=== PATIENT | female | born 1930 | race Caucasian/White ===

== ENCOUNTER 2016-10-24 08:02 | Emergency (ER) | payer OTHER ==
[2016-10-24 08:08] VITALS: TEMP 97.8; BMI 42.0
--- NOTE | 2016-10-24 08:11 | PDOC ---
History of Present Illness - General Chief Complaint: Pain, Acute Stated Complaint: ABD PAIN, CHEST TIGHTNESS Time Seen by Provider: 10/24/16 08:10 History Source: Patient, Old Records Exam Limitations: No Limitations - History of Present Illness Initial Comments: 10/24/16 08:11 CHIEF COMPLAINT: Chest and abdominal pain HISTORY OF PRESENT ILLNESS: This is an 85 year old female with a history of HTN , Afib (on Pradaxa), IDDM, dyslipidemia, GERD, and pancreatitis brought in by her daughter ambulatory to the ED complaining of burning upper abdominal pain, belching, and chest "tightness" since last night. The pain is unrelieved by omeprazole, Mylanta, and tea. She had a normal bowel movement yesterday and denies hematochezia. She has not had nausea/vomiting, shortness of breath, diaphoresis, or lower extremity edema above baseline. She frequently suffers from acid reflux, but states that the chest pain that she has today is different from prior episodes. Primary language is Khmer. PCP is Dr. Conrad Supervisor Type Photography is Dr. Maxwell REVIEW OF SYSTEMS: GENERAL/CONSTITUTIONAL: No fever or chills. No weakness. No weight change. HEAD, EYES, EARS, NOSE AND THROAT: No change in vision. No ear pain or discharge. No sore throat. CARDIOVASCULAR: Chest tightness. No palpitations. RESPIRATORY: No cough, wheezing, or shortness of breath. GASTROINTESTINAL: Burning upper abdominal pain. No nausea, vomiting, diarrhea or constipation. GENITOURINARY: No dysuria, frequency, or change in urination. MUSCULOSKELETAL: No joint or muscle swelling or pain. No neck or back pain. SKIN: No rash or easy bruising. NEUROLOGIC: No headache, vertigo, loss of consciousness, or loss of sensation. PSYCHIATRIC: No depression or anxiety. ENDOCRINE: No increased thirst. No abnormal weight change. HEMATOLOGIC/LYMPHATIC: No anemia, easy bleeding, or history of blood clots. ALLERGIC/IMMUNOLOGIC: History of PCN allergy. PHYSICAL EXAM: GENERAL: The patient is awake, alert, and fully oriented, in some secondary to pain. HEAD: Normal with no signs of trauma. ENT: Pupils equal, round and reactive to light, extraocular movements intact, sclera anicteric, conjunctiva clear. Neck supple. LUNGS: Clear to auscultation bilaterally. Normal excursion. No respiratory distress or use of accessory muscles. CV: RRR, S1/S2, no MRG. Cap refill < 2 sec. ABDOMEN: Soft, obese, tender to gentle palpation in epigastrium, no other focal tenderness. EXTREMITIES: 1+ pitting LE edema bilaterally. NEUROLOGICAL: Normal speech, normal gait. CN II-XII grossly intact. PSYCH: Normal mood, normal affect. SKIN: Warm, dry, normal turgor, no rashes or lesions noted. Past History - Past Medical History Allergies/Adverse Reactions: Allergies Allergy/AdvReac Type Severity Reaction Status Date / Time Penicillins Allergy Mild Rash Verified 10/24/16 08:04 Home Medications: Ambulatory Orders Acetaminophen [Tylenol] 500 mg PO PRN PRN 10/30/14 Aspirin [ASA -] 81 mg PO ASDIR 10/30/14 Atorvastatin Ca [Lipitor] 20 mg PO ASDIR 10/30/14 Dabigatran Etexilate Mesylate [Pradaxa -] 75 mg PO ONCE 10/30/14 Folic Acid - 1 mg PO DAILY 10/30/14 Furosemide [Lasix -] 20 mg PO DAILY 10/30/14 Lisinopril [Prinivil -] 0.5 tab PO DAILY 10/30/14 Metoprolol Succinate [Toprol XL -] 12.5 mg PO HS 10/30/14 Multivitamins [Multivit ([facility] Formulary)] 1 tab PO DAILY 10/30/14 Pioglitazone HCl/Metformin HCl [Actoplus Met 15 mg-850 mg Tab] 1 each PO BID Sennosides [Senna -] 1 tab PO DAILY PRN 10/30/14 Acetaminophen W/ Codeine #3 [Tylenol # 3 -] 1 tab PO Q6H PRN #15 tablet Alprazolam [Xanax] 0.25 mg PO BID PRN 01/26/16 Docusate Sodium [Colace -] 100 mg PO BID 01/26/16 Insulin Glargine,Hum.rec.anlog [Lantus (10mL VIAL) -] 2 units SQ HS 01/26/16 Omeprazole [Prilosec] 40 mg PO ASDIR PRN 01/26/16 Cardiac Disorders: Yes (afib) Diabetes: Yes (WITH NEUROPATHY) HTN: Yes Hypercholesterolemia: Yes - Surgical History Cardiac Surgery: Yes (CARDIAC STENTS) Orthopedic Surgery: Yes (LT LEG) - Psycho/Social/Smoking Cessation Hx Anxiety: Yes Suicidal Ideation: No Smoking History: Never smoked Have you smoked in the past 12 months: No Hx Alcohol Use: No Drug/Substance Use Hx: No Substance Use Type: None Hx Substance Use Treatment: No *Physical Exam - Vital Signs Last Vital Signs Temp Pulse Resp BP Pulse Ox 97.8 F 89 18 134/56 99 10/24/16 08:05 10/24/16 08:05 10/24/16 08:05 10/24/16 08:05 10/24/16 08:05 Heart Score/ECG Review - ECG Intrepretation Comment:: 10/24/16 08:20 Atrial fibrillation with ventricular rate of 83 bpm, PVCs, RBBB previously noted on prior EKG of 01/2016 ED Treatment Course - LABORATORY CBC & Chemistry Diagram: 10/24/16 08:40 10/24/16 08:40 - RADIOLOGY Radiology Studies Ordered: Category Date Time Status CHEST X-RAY PORTABLE* [RAD] Stat Radiology 10/24/16 08:10 Ordered Medical Decision Making - Medical Decision Making 10/24/16 08:39 A/P: 85 year old female with epigastric pain radiating to the chest. Differential includes but is not limited to: GERD, pancreatitis, ACS. 1. EKG 2. Fingerstick blood glucose 3. ASA 162mg 4. Cardiac labs and lipase 5. CXR 6. Pepcid and Maalox for symptomatic relief 7. Re-evaluate 10/24/16 09:54 Troponin <0.02. CXR: Prominent mediastinum with mild congestion. FRANCES granuloma which appears slightly larger than on previous exam (may be projectional). Patient re-evaluated and is still belching and complaining of upper abdominal pain- states "I feel like something is wrong." Will obtain CTAP- patient refuses PO contrast and BUN/Cr are 32/1.1 so will not administer IV contrast. Patient and daughter agree to stay in ED for second cardiac enzyme (offered observation/admission but they decline). Patient is asking for her home dose of Xanax. 10/24/16 11:44 CT reviewed: stranding of the subcutaneous fat is noted in the RLQ (patient has no symptoms or tenderness there). There are small gallstones and possible chronic cholecystitis. Observation recommended, but patient and daughter decline. Will keep for second troponin. Discussed with PCP who also talked with patient's daughter via phone. 10/24/16 14:15 Second troponin <0.02. *DC/Admit/Observation/Transfer Diagnosis at time of Disposition: Atypical chest pain - Discharge Dispostion Disposition: HOME Condition at time of disposition: Stable Admit: No - Referrals Referrals: Phan Conrad MD [Primary Care Provider] - - Patient Instructions Printed Discharge Instructions: GERD Diet, DI for Atypical Chest Pain Additional Instructions: You were seen today for chest pain/abdominal pain. Your blood work and CT scan did not reveal any specific cause of your pain. Please follow up with Dr. Conrad tomorrow as discussed. Copies of your tests are enclosed. Please return here for worsening pain, inability to keep down fluids, or any other concerning symptoms.
[2016-10-24] MEDS ORDERED: MAG HYDROX/AL HYDROX/SIMETH 30 ML UNIT-DOSE CUP PO ONE (08:25)
[2016-10-24] MEDS ORDERED: FAMOTIDINE 20 MG/50 ML IVPB 20 MG in PREMIX 50 IVPB ONE (08:25)
[2016-10-24] MEDS ORDERED: ASPIRIN 81 MG CHEWABLE TABLETS PO ONE (08:26)
[2016-10-24] MEDS ORDERED: ASPIRIN 81 MG CHEWABLE TABLETS ONE (08:38)
[2016-10-24] MEDS ORDERED: MAG HYDROX/AL HYDROX/SIMETH 30 ML UNIT-DOSE CUP ONE (08:38)
[2016-10-24] MEDS ORDERED: FAMOTIDINE 20 MG/50 ML IVPB 50 ML IVPB ONE (08:40)
[2016-10-24 09:05] LABS: BASOPHIL 0.2 % (0-2.0); EOSINOPHIL 0.5 % (0-4.5); MCH 27.8 pg (25.7-33.7); MCHC 32.6 g/dl (32.0-36.0); MEAN CELL VOLUME 85.2 fl (80-96); MEAN PLT VOLUME 8.1 fl (7.5-11.1); PLATELET COUNT 173 K/MM3 (134-434); WHITE BLOOD COUNT 4.6 K/mm3 (4.0-10.0)
[2016-10-24 09:19] LABS: ALBUMIN 3.8 g/dl (3.4-5.0); ANION GAP 10 (8-16); BILIRUBIN,TOTAL 0.6 mg/dL (0.2-1.0); CALCIUM 9.1 mg/dL (8.5-10.1); CO2 29 mmol/L (21-32); CREATININE 1.1 mg/dL (0.55-1.02); GLUCOSE,RANDOM 148 mg/dL (74-106); SGOT/AST 23 U/L (15-37); SGPT/ALT 16 U/L (12-78)
[2016-10-24 09:20] LABS: INR 1.08 (0.82-1.09); PROTHROMBIN TIME (PATIENT) 11.9 SEC (9.98-11.88)
[2016-10-24 09:21] LABS: ALK PHOS 87 U/L (45-117); TROPONIN I < 0.02 ng/ml (0.00-0.05)
[2016-10-24] MEDS ORDERED: ONDANSETRON 4 MG/2 ML VIAL IVPB ONE (10:11)
[2016-10-24] MEDS ORDERED: ONDANSETRON 4 MG/2 ML VIAL ONE (10:22)
[2016-10-24] MEDS ORDERED: ALPRAZolam 0.25 MG TABLET PO ONE (10:27)
[2016-10-24] MEDS ORDERED: ALPRAZolam 0.25 MG TABLET ONE (10:44)
[2016-10-24] MEDS: morphine CARPU-JECT 4 MG/1 ML DISP.SYRIN IVPUSH ONE ×2 (12:41→13:05)
[2016-10-24] MEDS ORDERED: morphine CARPU-JECT 4 MG/1 ML DISP.SYRIN ONE (12:41)
[2016-10-24 14:12] LABS: TROPONIN I < 0.02 ng/ml (0.00-0.05)
[2016-10-24 14:34] VITALS: BP 122/56; PULSE 85
--- NOTE | 2016-10-25 10:50 | EKG ---
Test Reason : Blood Pressure : / mmHG Vent. Rate : 083 BPM Atrial Rate : 080 BPM P-R Int : 000 ms QRS Dur : 132 ms QT Int : 414 ms P-R-T Axes : 000 091 023 degrees QTc Int : 486 ms ATRIAL FIBRILLATION WITH PREMATURE VENTRICULAR OR ABERRANTLY CONDUCTED COMPLEXES RIGHT BUNDLE BRANCH BLOCK ABNORMAL ECG WHEN COMPARED WITH ECG OF 26-JAN-2016 07:29, QUESTIONABLE CHANGE IN QRS AXIS Confirmed by MATA WATSON MD ([id number]) on 10/25/2016 10:50:31 AM Referred By: Confirmed By:MATA WATSON MD
== END 2016-10-24 14:34 | disposition home or self-care (01) ==
LOC: JER 08:02
PROC: 3E033NZ Introduction of Analgesics, Hypnotics, Sedatives into Peripheral Vein, Percutaneous Approach (ICD-10-PCS; principal; 2016-10-24)
PROC: 3E033GC Introduction of Other Therapeutic Substance into Peripheral Vein, Percutaneous Approach (ICD-10-PCS; 2016-10-24)
DX: R07.89 Other chest pain (principal); I10 Essential (primary) hypertension; I48.91 Unspecified atrial fibrillation; E11.9 Type 2 diabetes mellitus without complications; E78.5 Hyperlipidemia, unspecified; K21.9 Gastro-esophageal reflux disease without esophagitis; Z79.4 Long term (current) use of insulin; Z79.82 Long term (current) use of aspirin; Z95.5 Presence of coronary angioplasty implant and graft
CPT/HCPCS: 36415; 71010-TC; 74176-TC; 80053; 82550; 83690; 84484; 85025; 85610; 93005; 93010; 96365; 96375; 99282-25

== ENCOUNTER 2018-11-22 06:31 | Emergency (ER) | payer OTHER ==
[2018-11-22 06:55] VITALS: BP 114/76; PULSE 88; TEMP 98.5; BMI 38.6
[2018-11-22] MEDS ORDERED: ACETAMINOPHEN 325 MG TABLET (FP) PO ONE (07:32)
[2018-11-22] MEDS ORDERED: LIDOCAINE 5% TOPICAL PATCH TP ONE (07:32)
[2018-11-22] MEDS ORDERED: CYCLOBENZAPRINE HCL 5 MG TABLET PO ONE (07:33)
[2018-11-22] MEDS ORDERED: ACETAMINOPHEN 325 MG TABLET (FP) ONE (07:36)
[2018-11-22] MEDS ORDERED: LIDOCAINE 5% TOPICAL PATCH ONE (07:36)
[2018-11-22] MEDS ORDERED: CYCLOBENZAPRINE HCL 10 MG TABLET (FP) ONE (07:36)
[2018-11-22] MEDS ORDERED: PANTOPRAZOLE 40 MG TABLET (FP) PO ONE (07:52)
--- NOTE | 2018-11-22 07:59 | PDOC ---
History of Present Illness - General Chief Complaint: Injury Stated Complaint: FALL Time Seen by Provider: 11/22/18 07:06 History Source: Patient, Family - History of Present Illness Initial Comments: 11/22/18 07:54 HPI 88 year old female with a history of HTN, Afib (on Pradaxa), IDDM, dyslipidemia , arthritis, cataracts, GERD, and pancreatitis brought in by EMs presenting with right buttock and hip pain s/p mechanical fall last night at 10pm. At that time she was bending down to wipe when she lost her balance and fell from the toilet. +head struck the door, but no LOC or head bleeding/swelling. No headache or dizziness. Has been ambulatory since incident last night, uses cane for ambulation without difficulty. This morning at 5am, she woke up with stiffness and increased right groin/buttock pain, worse with movement and walking. Denies fever, chills, chest pain, SOB, palpitation, dizziness, focal weakness or paresthesias, N, V, D, abdominal pain, bladder and bowel problems, leg swelling, No new changes in medications. No suspicious food intake Allergies: pcn Past Medical History: HTN, Afib (on Pradaxa), IDDM, dyslipidemia, GERD, and pancreatitis Social history: Lives with family. No smoking. No alcohol. No illicit drugs. Surgical history: cataracts. Left hip prosthesis PMD: Dr Conrad Past History - Past Medical History Allergies/Adverse Reactions: Allergies Allergy/AdvReac Type Severity Reaction Status Date / Time Penicillins Allergy Mild Rash Verified 11/22/18 06:45 Home Medications: Ambulatory Orders Aspirin [ASA -] 81 mg PO DAILY 10/30/14 Atorvastatin Ca [Lipitor] 20 mg PO ASDIR 10/30/14 Dabigatran Etexilate Mesylate [Pradaxa -] 75 mg PO BID 10/30/14 Folic Acid - 1 mg PO DAILY 10/30/14 Furosemide [Lasix -] 20 mg PO DAILY 10/30/14 Lisinopril [Prinivil -] 2.5 mg PO DAILY 10/30/14 Metoprolol Succinate [Toprol XL -] 12.5 mg PO DAILY 10/30/14 Multivitamins [Multivit ([facility] Formulary)] 1 tab PO DAILY 10/30/14 Pioglitazone HCl/Metformin HCl [Actoplus Met 15 mg-850 mg Tab] 1 each PO BID Sennosides [Senna -] 1 tab PO BID 10/30/14 Acetaminophen W/ Codeine #3 [Tylenol # 3 -] 1 tab PO Q6H PRN #15 tablet Alprazolam [Xanax] 0.25 mg PO BID PRN 01/26/16 Insulin Glargine,Hum.rec.anlog [Lantus (10mL VIAL) -] 2 units SQ HS 01/26/16 Famotidine [Pepcid -] 10 mg PO DAILY 02/27/18 Pantoprazole Sodium [Protonix] 40 mg PO BID #14 tablet. 02/27/18 Lidocaine 5% Patch [Lidoderm Patch -] 1 patch TP DAILY PRN #7 patch 11/22/18 Cardiac Disorders: Yes (afib) COPD: No Diabetes: Yes (WITH NEUROPATHY) HTN: Yes Hypercholesterolemia: Yes Psychiatric Problems: Yes (anxiety and depression) - Surgical History Cardiac Surgery: Yes (CARDIAC STENTS) Orthopedic Surgery: Yes (LT LEG) - Immunization History Immunization Up to Date: Yes - Suicide/Smoking/Psychosocial Hx Smoking History: Never smoked Have you smoked in the past 12 months: No Information on smoking cessation initiated: No Hx Alcohol Use: No Drug/Substance Use Hx: No Substance Use Type: None Hx Substance Use Treatment: No Review of Systems - Review of Systems Able to Perform ROS?: Yes Comments:: 11/22/18 07:54 Review of systems Constitutional: no fevers or chills. HEENT: no headache or dizziness. No visual/hearing disturbances. CVS: no cp or syncope. no palpitations. Resp: no sob. No cough. Gastrointestinal: no abdominal pain, nausea or vomiting. Genitourinary: no urinary sx, hematuria. no urgency or frequency. MUSCULOSKELETAL: No joint pain and swelling. No neck. +hip, buttock and lower back pain. SKIN: no redness or skin changes, no discharge, no rash. No wounds. Hematologic: no easy bruising/bleeding. NEUROLOGIC: No headache, dizziness, LOC or altered mental status. No weakness, numbness or tingling. Allergic/Immunologic: pcn allergy All other systems reviewed and negative, or as documented in HPI. *Physical Exam - Vital Signs Last Vital Signs Temp Pulse Resp BP Pulse Ox 98.5 F 88 20 114/76 100 11/22/18 06:46 11/22/18 06:46 11/22/18 06:46 11/22/18 06:46 11/22/18 06:46 - Physical Exam Comments: 11/22/18 07:55 General: GCS 15 NAD, mildly anxious. HEENT: NCAT, PERRL, EOMI. Airway intact. No battles sign or raccoon eyes. dentures intact. Dentition intact. No e/o septal hematoma, nasal bridge stable. Neck: neck supple, no midline C spine tenderness or deformity, ROM intact. No anterior mass or crepitus, trachea midline. Resp: Lungs clear bilaterally Chest: no clavicle or chest wall tenderness or crepitus CVS: irregularly irregular, 2+ pulses throughout. Abdomen: Abdomen soft, nontender, obese. Back: Back nontender, no midline spinal tenderness along cervical/thoracic/ lumbar spine, FROM, no stepoffs. +right lower buttock TTP, no overlying ecchymosis or hematoma or swelling. MSK: Pelvis stable, Extremities symmetric, no focal areas of tenderness or deformities, proximal and distally; no pain on axial loading. FROM in all extrem. Neuro: Alert, oriented appropriately. CN II-XII grossly symmetric and intact. no focal neuro deficits. Sensation and strength intact throughout. speech clear. Skin: intact, normal color and well perfused. no wounds, ecchymosis or hematoma. ED Treatment Course - RADIOLOGY Radiology Studies Ordered: Category Date Time Status CERVICAL SPINE CT W/O CONTR [CT] Stat CT Scan 11/22/18 07:[address] WITHOUT CONTRAST [CT] Stat CT Scan 11/22/18 07:33 Ordered HIP & PELVIS-RIGHT [RAD] Stat Radiology 11/22/18 07:34 Ordered PELVIS [RAD] Stat Radiology 11/22/18 07:33 Ordered - Medications Given in the ED: ED Medications Discontinued Medications Generic Name Dose Route Start Last Admin Trade Name Freq PRN Reason Stop Dose Admin Acetaminophen 975 mg 11/22/18 07:32 11/22/18 07:48 Tylenol - PO 11/22/18 07:33 975 mg ONCE ONE Administration Cyclobenzaprine HCl 10 mg 11/22/18 07:33 11/22/18 07:48 Cyclobenzaprine Hcl PO 11/22/18 07:34 10 mg ONCE ONE Administration Lidocaine 1 patch 11/22/18 07:32 11/22/18 07:48 Lidoderm Patch - TP 11/22/18 07:33 1 patch ONCE ONE Administration Medical Decision Making - Medical Decision Making 11/22/18 07:56 hpi as documented VS reviewed, wnl. mildly anxious ABCs intact. 2ndary trauma eval unremarkable. Trauma ddx: ICH, SDH/ EDH, C spine injury/strain, extremity sprain/fracture, pelvis fracture. MSK contusion, msk spasms. Rib fractures. Clinically doubt Intra abdominal and thoracic injuries/bleed, no midline impact/back tenderness to suggest compression fx or spinal cord pathology. given analgesia, topical lidoderm patch - much improved. 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 arthritic changes noted Xray pelvis/right hip no acute fx, +arthritic and degenerative changes noted. normal alignment, slightly rotated. no pelvic fx. left femur prosthesis noted. no systemic sx, no complaints apart from msk pain, so no labs indicated. no cp or respiratory sx, no infectious sx. at baseline, safe at home with walker device, no recent falls except from today.\ no narcotics or sedating agents to be given due to fall risk, no anticholinergic agents. tylenol only prn for pain control if needed Pt to be discharged in stable condition. Patient and family made aware of impression and plan, return precautions discussed (including but not limited to worsening pain or symptoms), fevers, or signs of infection, chest pain, respiratory distress, inability to tolerate oral intake, dehydration, syncope, or neurologic changes). Follow up with PMD and/or specialist as recommended, follow up information provided, take medications as instructed for duration of time. continue with supportive care, avoid triggers and precipitants. All questions answered to patient's satisfaction and expressed understanding and comfort with this. Patient does not suffer from an acute life-threatening medical condition at this time she is safe for outpatient follow-up. 11/22/18 10:27 11/22/18 10:29 *DC/Admit/Observation/Transfer Diagnosis at time of Disposition: Buttock sprain - Discharge Dispostion Disposition: HOME Condition at time of disposition: Improved Decision to Admit order: No - Prescriptions Prescriptions: Lidocaine 5% Patch [Lidoderm Patch -] 1 patch TP DAILY PRN #7 patch PRN Reason: Pain - Referrals Referrals: Phan Conrad MD [Primary Care Provider] - - Patient Instructions Printed Discharge Instructions: How to Prevent Falls Additional Instructions: FALL PREVENTION AT HOME WHAT YOU NEED TO KNOW There are many different factors that can increase your risk of falls. Falls can happen any time, but the majority of them occur in the home. Fall prevention includes ways to make your home and other areas safer. It also includes ways you can move more carefully to prevent a fall. Health conditions that cause changes in your blood pressure, vision, or muscle strength and coordination may increase your risk for falls. Medicines, including anesthesia, may increase your risk for falls if they make you dizzy, weak, or sleepy. May take tylenol as needed for pain. topical lidoderm patches available over the counter, use as needed for myofascial pain. other medications may cause drowsiness, increase falls and injuries and to be avoided. FALL PREVENTION TIPS Stand or sit up slowly. This may help you keep your balance and prevent falls. Do not walk and talk at the same time. Concentrate on the task of walking and continue the conversation after you've reached a safe place. Wear shoes that fit well and have soles that paper cutter operator. Wear shoes both inside and outside. Use slippers with good paper cutter operator. Avoid shoes with high heels. Use assistive devices as directed. Your healthcare provider may suggest that you use a cane or walker to help you keep you balance. Be sure you have adequate lighting throughout your house. Keep paths clear. Remove books, shoes and other objects from walkways and stairs. Keep cords for telephones and lamps out of the way so you dont need to walk over them. Remove small rugs or secure them with double-sided tape. This will prevent you from tripping. Use a nightlight when getting out of bed at night. Stay active to maintain overall strength and endurance. Know your limitations. If there is a task you can not complete with ease, do not risk a fall by trying to complete it. Call 911 or have someone else call if: You have fallen and are unconscious You have fallen and cannot move part of your body Contact your healthcare provider if: You have fallen and have pain or a headache You have questions or concerns about your condition or care. - Post Discharge Activity
[2018-11-22] MEDS ORDERED: PANTOPRAZOLE 40 MG TABLET (FP) ONE (09:41)
== END 2018-11-22 11:00 | disposition home or self-care (01) ==
LOC: JER 06:31
DX: S09.8XXA Other specified injuries of head, initial encounter (principal); S39.012A Strain of muscle, fascia and tendon of lower back, initial encounter; W18.12XA Fall from or off toilet with subsequent striking against object, initial encounter; Y93.89 Activity, other specified; Y92.012 Bathroom of single-family (private) house as the place of occurrence of the external cause; Y99.8 Other external cause status; I48.91 Unspecified atrial fibrillation; Z79.01 Long term (current) use of anticoagulants; E11.42 Type 2 diabetes mellitus with diabetic polyneuropathy; Z79.4 Long term (current) use of insulin; I25.10 Atherosclerotic heart disease of native coronary artery without angina pectoris; I10 Essential (primary) hypertension; E78.00 Pure hypercholesterolemia, unspecified; F41.9 Anxiety disorder, unspecified; F32.9 Major depressive disorder, single episode, unspecified; K21.9 Gastro-esophageal reflux disease without esophagitis; Z95.5 Presence of coronary angioplasty implant and graft
CPT/HCPCS: 70450-TC; 72125-TC; 73523-TC-FY; 99283-25

== ENCOUNTER 2019-05-18 13:32 | Emergency (ER) | payer OTHER ==
[2019-05-18 13:48] VITALS: TEMP 98.5; BMI 37.8
[2019-05-18] MEDS ORDERED: ACETAMINOPHEN 1000 MG/100 ML VIAL (NON FORMULARY) IVPB ONE (14:08)
[2019-05-18] MEDS ORDERED: SODIUM CHLORIDE 500 ML IV STA (14:09)
--- NOTE | 2019-05-18 14:19 | PDOC ---
History of Present Illness - General Chief Complaint: Pain Stated Complaint: Pain Time Seen by Provider: 05/18/19 13:48 - History of Present Illness Initial Comments: 05/18/19 14:21 88 y/o F hx of Afib on pradaxa, HTN, GERD, IDDM, HLD, arthritis, pancreatitis presenting with 4 days of abdominal pain and constipation. She has been complaining of RLQ pain 8/10 in severity. She takes tylenol with codeine and tramadol for arthritic pain control. Pain is non-radiating.she was at her PCP's office today where she was given a stool softener and suppository. She was able to pass a small amount of stool after suppository administration. Stool was non- bloody. She denies fevers, chills, nausea, vomiting, diarrhea, dysuria, hematuria, hx of abdominal surgeries. Past History - Past Medical History Allergies/Adverse Reactions: Allergies Allergy/AdvReac Type Severity Reaction Status Date / Time Penicillins Allergy Mild Rash Verified 11/22/18 06:45 Home Medications: Ambulatory Orders Aspirin [ASA -] 81 mg PO Q2D 10/30/14 Atorvastatin Ca [Lipitor] 20 mg PO ASDIR 10/30/14 Dabigatran Etexilate Mesylate [Pradaxa -] 150 mg PO BID 10/30/14 Folic Acid - 1 mg PO DAILY 10/30/14 Furosemide [Lasix -] 20 mg PO DAILY 10/30/14 Lisinopril [Prinivil -] 2.5 mg PO DAILY 10/30/14 Metoprolol Succinate [Toprol XL -] 12.5 mg PO DAILY 10/30/14 Multivitamins [Multivit ([facility] Formulary)] 1 tab PO DAILY 10/30/14 Pioglitazone HCl/Metformin HCl [Actoplus Met 15 mg-850 mg Tab] 1 each PO BID Sennosides [Senna -] 1 tab PO BID 10/30/14 Alprazolam [Xanax] 0.25 mg PO HS 01/26/16 Insulin Glargine,Hum.rec.anlog [Lantus (10mL VIAL) -] 2 units SQ HS 01/26/16 Acetaminophen W/ Codeine #3 [Tylenol # 3 -] 1 tab PO HS 05/18/19 Tramadol HCl 50 mg PO DAILY PRN 05/18/19 Cardiac Disorders: Yes (afib) COPD: No Diabetes: Yes (WITH NEUROPATHY) HTN: Yes Hypercholesterolemia: Yes Psychiatric Problems: Yes (anxiety and depression) - Surgical History Cardiac Surgery: Yes (CARDIAC STENTS) Orthopedic Surgery: Yes (LT LEG) - Immunization History Immunization Up to Date: Yes - Psycho Social/Smoking Cessation Hx Smoking History: Never smoked Have you smoked in the past 12 months: No Hx Alcohol Use: No Drug/Substance Use Hx: No Substance Use Type: None Hx Substance Use Treatment: No Review of Systems - Review of Systems Constitutional: No: Chills, Fever HEENTM: No: Eye Pain, Blurred Vision Respiratory: No: Cough, Shortness of Breath Cardiac (ROS): No: Chest Pain ABD/GI: Yes: Symptoms Reported : No: Dysuria, Hematuria Musculoskeletal: Yes: Back Pain, Joint Pain Neurological: No: Headache Psychiatric: Yes: Anxiety *Physical Exam - Vital Signs Last Vital Signs Temp Pulse Resp BP Pulse Ox 98.5 F 84 19 117/57 L 99 05/18/19 13:34 05/18/19 13:34 05/18/19 13:34 05/18/19 13:34 05/18/19 13:34 - Physical Exam Comments: 05/18/19 14:19 PE: GENERAL: Awake, alert, and fully oriented, anxious. HEAD: No signs of trauma, normocephalic, atraumatic EYES: PERRLA, EOMI, sclera anicteric, conjunctiva clear ENT: Auricles normal inspection, hearing grossly normal, nares patent, oropharynx clear without exudates. Moist mucosa NECK: Normal ROM, supple, no lymphadenopathy, JVD, or masses LUNGS: No distress, speaks full sentences, clear to auscultation bilaterally HEART: Regular rate and rhythm, normal S1 and S2, systolic murmur peripheral pulses normal and equal bilaterally. ABDOMEN: Soft, tender to palpation right lower quadrant, normoactive bowel sounds. No masses EXTREMITIES : Normal inspection, Normal range of motion, trace edema bilateral lower extremities. No cyanosis NEUROLOGICAL: Cranial nerves II through XII grossly intact. Normal speech, no focal sensorimotor deficits SKIN: Warm, Dry, normal turgor, no rashes or lesions noted ED Treatment Course - LABORATORY CBC & Chemistry Diagram: 05/18/19 14:38 05/18/19 15:55 Medical Decision Making - Medical Decision Making 05/18/19 14:26 88 y/o F hx of Afib on pradaxa, HTN, GERD, IDDM, HLD, arthritis, pancreatitis presenting with 4 days of abdominal pain and constipation ekg,cbc,cmp, ua, urine culture, ct abdomen and pelvis with IV contrast, Meds: tylenol IV, 1L normal saline, 05/18/19 14:56 EKG:atrial fibrillation, RBBB Lactic acid 1.2 Lipase 74 UA negative for leukocyte esterase, nitrites and blood 05/18/19 16:25 05/18/19 16:25 05/18/19 19:49 Pt willing to follow up with PCP to optimize regimen as opposed to getting Relistor from us at this time. Due to complicated nature of monitoring and pt would have to discontinue meds from PCP. Discharge - Discharge Information Problems reviewed: Yes Clinical Impression/Diagnosis: Abdominal pain Qualifiers: Abdominal location: right lower quadrant Qualified Code(s): R10.31 - Right lower quadrant pain Condition: Stable Disposition: HOME - Admission No - Follow up/Referral Referrals: Phan Conrad MD [Primary Care Provider] - - Patient Discharge Instructions Patient Printed Discharge Instructions: DI for Abdominal Pain-Adult, DI for Prescription Opioid Use Additional Instructions: you were seen in the ED for abdominal pain Follow up with your primary care provider to optimize your bowel regimen for your constipation in the next 3 days. Return to the ER if you have worsening abdominal pain, fevers, blood in your stool or any other worsening symptoms. - Post Discharge Activity
[2019-05-18] MEDS ORDERED: ACETAMINOPHEN INJECTION 100 ML IVPB ONE (14:32)
[2019-05-18] MEDS ORDERED: morphine CARPU-JECT 2 MG/1 ML DISP.SYRIN IVPUSH ONE (14:37)
[2019-05-18 15:14] LABS: BASO % 0.3 % (0-2.0); EOS % 0.2 % (0-4.5); HEMATOCRIT 30.4 % (32.4-45.2); HEMOGLOBIN 9.7 GM/dL (10.7-15.3); LYMPH % 10.8 % (8-40); MCH 26.2 pg (25.7-33.7); MCHC 31.9 g/dl (32.0-36.0); MEAN CELL VOLUME 82.1 fl (80-96); MONO % 5.5 % (3.8-10.2); NEUT % 83.2 % (42.8-82.8); PLATELET COUNT 212 K/MM3 (134-434); WHITE BLOOD COUNT 5.3 K/mm3 (4.0-10.0)
[2019-05-18 15:38] LABS: INR 1.22 (0.83-1.09); PROTHROMBIN TIME (PATIENT) 14.4 SEC (9.7-13.0)
[2019-05-18 15:41] LABS: ACTIVATED PTT 64.8 SECONDS (25.2-36.5)
[2019-05-18 16:19] LABS: PH,URINE 6.5 (5.0-8.0); URINE APPEARANCE CLEAR; URINE BILIRUBIN NEGATIVE (NEGATIVE); URINE COLOR YELLOW; URINE GLUCOSE (UA) NEGATIVE (NEGATIVE); URINE KETONE NEGATIVE (NEGATIVE); URINE LEUK ESTERASE NEGATIVE (NEGATIVE); URINE NITRITE NEGATIVE (NEGATIVE); URINE PROTEIN NEGATIVE (NEGATIVE); URINE UROBILINOGEN 0.2 mg/dL (0.2-1.0)
[2019-05-18 16:37] LABS: ALBUMIN 3.8 g/dl (3.4-5.0); BILIRUBIN,TOTAL 0.4 mg/dL (0.2-1); BLOOD UREA NITROGEN 34.3 mg/dL (7-18); CALCIUM 8.9 mg/dL (8.5-10.1); POTASSIUM 4.4 mmol/L (3.5-5.1); TOT PROT 6.9 g/dl (6.4-8.2)
[2019-05-18 16:47] LABS: INR 1.28 (0.83-1.09); PROTHROMBIN TIME (PATIENT) 15.1 SEC (9.7-13.0)
[2019-05-18] MEDS ORDERED: LORazepam 2 MG/ML SDV VIAL ONE (16:49)
[2019-05-18 16:50] LABS: ACTIVATED PTT 50.3 SECONDS (25.2-36.5)
--- NOTE | 2019-05-18 16:57 | PDOC ---
Attending Attestation - Resident Resident Name: Jen Villatoro - ED Attending Attestation I have performed the following: I have examined & evaluated the patient, The case was reviewed & discussed with the resident, I agree w/resident's findings & plan, Exceptions are as noted - HPI HPI: 05/18/19 16:51 88 y/o F hx of Afib on pradaxa, HTN, GERD, IDDM, HLD, arthritis, pancreatitis, presents to the emergency department four-day history of abdominal pain and discomfort. - Physicial Exam PE: 05/18/19 16:51 Vitals: Triage Vital signs reviewed General Appearance: no acute distress, well nourished well developed, Head: Atraumatic, Cardiac: Regular rate and rhythym, no murmurs, no rubs, no gallops, Lungs: Clear to auscultation bilateral, good air movement bilaterally, Abdomen: Soft, non distended, normal bowel sounds, non tender to palpation Extremities: Full range of motion to all extremities, no cyanosis, clubbing, or edema Skin: Warm and dry, no rashes or lesions, no rash, no petechiae Psych: normal mood, normal affect - Medical Decision Making 05/18/19 18:59 Well-appearing with right-sided abdominal discomfort CAT scan pending Dr. Doss to follow-up CAT scan and dispo
[2019-05-18 19:41] VITALS: BP 120/60; PULSE 76
--- NOTE | 2019-05-19 10:06 | EKG ---
Test Reason : Blood Pressure : / mmHG Vent. Rate : 079 BPM Atrial Rate : 144 BPM P-R Int : 000 ms QRS Dur : 136 ms QT Int : 436 ms P-R-T Axes : 000 059 026 degrees QTc Int : 499 ms ATRIAL FIBRILLATION RIGHT BUNDLE BRANCH BLOCK ABNORMAL ECG WHEN COMPARED WITH ECG OF 24-OCT-2016 08:08, NONSPECIFIC T WAVE ABNORMALITY NO LONGER EVIDENT IN ANTERIOR LEADS Confirmed by Benji Canseco MD ([id number]) on 05/19/2019 10:06:03 AM Referred By: Confirmed By:Benji Canseco MD
== END 2019-05-18 20:01 | disposition home or self-care (01) ==
LOC: JER 13:32
PROC: 3E033NZ Introduction of Analgesics, Hypnotics, Sedatives into Peripheral Vein, Percutaneous Approach (ICD-10-PCS; principal; 2019-05-18)
PROC: 3E033NZ Introduction of Analgesics, Hypnotics, Sedatives into Peripheral Vein, Percutaneous Approach (ICD-10-PCS; 2019-05-18)
DX: R10.31 Right lower quadrant pain (principal); K59.00 Constipation, unspecified; I25.10 Atherosclerotic heart disease of native coronary artery without angina pectoris; I10 Essential (primary) hypertension; Z95.5 Presence of coronary angioplasty implant and graft; I48.91 Unspecified atrial fibrillation; Z79.01 Long term (current) use of anticoagulants; E11.40 Type 2 diabetes mellitus with diabetic neuropathy, unspecified; Z79.4 Long term (current) use of insulin; E78.00 Pure hypercholesterolemia, unspecified; F41.8 Other specified anxiety disorders; F32.9 Major depressive disorder, single episode, unspecified; K21.9 Gastro-esophageal reflux disease without esophagitis; M12.9 Arthropathy, unspecified; K86.9 Disease of pancreas, unspecified; Z88.0 Allergy status to penicillin
CPT/HCPCS: 36415; 71045-TC-FY; 74177-TC; 80053; 81003; 83605; 83690; 85025; 85610; 85730; 87086; 93005; 93010; 96374; 96375; 99284-25; J0131; J7030

== ENCOUNTER 2019-09-11 09:53 | Inpatient (IN) | payer OTHER ==
[2019-09-11 10:06] VITALS: BMI 37.8
--- NOTE | 2019-09-11 10:39 | PDOC ---
History of Present Illness - General Chief Complaint: Chest Pain Stated Complaint: CHEST PAIN/ABD. PAIN Time Seen by Provider: 09/11/19 10:22 - History of Present Illness Initial Comments: The pt is an 88F w/ a history of Afib (pradaxa), Alzheimer's dementia, HTN, GERD , NIDDM, HLD, arthritis, pancreatitis who presents for evaluation of chest pain that started this morning. The history is per the daughter as the pt is unable to give a history. The daughter states that this morning the pt appeared frantic complaining of chest pain and was initially inconsolable. She then would not take her morning medications. The daughter attributes this latter part to the patients dementia. Upon arrival to the ED, the pt consented to take her morning medications. At this time the pt reports mild chest discomfort to yes/no questioning but is unable to further qualify it. Per the daughter, the pt has not had any fevers or coughing at home. Daughter also reports improved leg swelling s/p increase in Lasix dosage. PMD: Dr. Roberts Cards: Dr. Cunningham ([facility]) Neuro: Dr. Agustin 09/11/19 10:39 Past History - Past Medical History Allergies/Adverse Reactions: Allergies Allergy/AdvReac Type Severity Reaction Status Date / Time Penicillins Allergy Mild Rash Verified 11/22/18 06:45 Home Medications: Ambulatory Orders Aspirin [Aspirin EC] 81 mg PO DAILY 09/11/19 Atorvastatin Ca [Lipitor] 20 mg PO HS 09/11/19 Dabigatran Etexilate Mesylate [Pradaxa -] 75 mg PO BID 09/11/19 Donepezil HCl 5 mg PO DAILY 09/11/19 Furosemide [Lasix -] 40 mg PO DAILY 09/11/19 Insulin Glargine,Hum.rec.anlog [Lantus] 20 unit SQ DAILY 09/11/19 Lisinopril [Zestril] 2.5 mg PO DAILY 09/11/19 Mag Hydrox/Al Hydrox/Simeth [Mylanta Oral Suspension -] 30 ml PO DAILY 09/11/19 Metoprolol Tartrate [Lopressor -] 12.5 mg PO DAILY 09/11/19 Multivitamin [Multiple Vitamins] 1 each PO DAILY 09/11/19 Omeprazole 20 mg PO DAILY 01/24/20 Pioglitazone HCl/Metformin HCl [Actoplus Met 15 mg-850 mg Tab] 1 each PO BID Potassium Chloride 20 meq PO DAILY 09/11/19 Quetiapine Fumarate [Seroquel -] 12.5 mg PO BID 09/11/19 Sennosides [Senna] 8.6 mg PO BID 09/11/19 Anemia: Yes Cardiac Disorders: Yes (afib) COPD: No Diabetes: Yes (WITH NEUROPATHY) HTN: Yes Hypercholesterolemia: Yes Psychiatric Problems: Yes (anxiety and depression) - Surgical History Cardiac Surgery: Yes (CARDIAC STENTS) Orthopedic Surgery: Yes (LT LEG) - Immunization History Immunization Up to Date: Yes - Psycho Social/Smoking Cessation Hx Smoking History: Never smoked Have you smoked in the past 12 months: No Hx Alcohol Use: No Drug/Substance Use Hx: No Substance Use Type: None Hx Substance Use Treatment: No Review of Systems - Review of Systems Able to Perform ROS?: No (2/2 medical condition) *Physical Exam - Vital Signs Last Vital Signs Temp Pulse Resp BP Pulse Ox 98.3 F 88 18 145/57 L 100 09/11/19 10:04 09/11/19 10:04 09/11/19 10:04 09/11/19 10:04 09/11/19 10:04 - Physical Exam GENERAL: Awake, in no acute distress HEAD: No signs of trauma, normoc ephalic, atraumatic EYES: PERRLA, EOMI, sclera anicteric, conjunctiva clear ENT: Hearing grossly normal, nares patent, oropharynx clear without exudates. Moist mucosa LUNGS: No distress, poor inspiratory effort, clear to auscultation bilaterally HEART: Regular rate and irregularly irregular rhythm, normal S1 and S2, no murmurs appreciated, peripheral pulses normal and equal bilaterally ABDOMEN: Soft, protuberant, no grimace to palpation, normoactive bowel sounds. No guarding, no rebound EXTREMITIES: BLE 4+ edema to mid thigh w/o cellulitic changes NEUROLOGICAL: Cranial nerves II through XII grossly intact. Normal speech, no focal sensorimotor deficits SKIN: Warm, Dry 09/11/19 10:38 ED Treatment Course - LABORATORY CBC & Chemistry Diagram: 09/11/19 10:28 09/11/19 10:28 - RADIOLOGY Radiology Studies Ordered: Category Date Time Status CHEST X-RAY PORTABLE* [RAD] Stat Radiology 09/11/19 10:31 Ordered Medical Decision Making - Medical Decision Making The pt is an 88F w/ a history of Afib (pradaxa), Alzheimer's dementia, HTN, GERD , NIDDM, HLD, arthritis, pancreatitis who presents for evaluation of chest pain that started this morning. ED Course CMP, CBC, Coags CXR ECG w/ a-fib; HR 90; RBBB; QTc 513; no axis deviation; no JESUS MANUEL 09/11/19 10:45 No leukocytosis Anemia noted Elevated BUN noted -neg stool occult blood -No indication to transfuse at this time Lytes unremarkable Cr near baseline LFTs wnl Trop I neg BNP elevated, no history to compare Plan for Tele obs Microblog sent, awaiting return call 09/11/19 13:35 Pt signed out to admitting service Discharge - Discharge Information Problems reviewed: Yes Clinical Impression/Diagnosis: ACS (acute coronary syndrome) Chest pain Qualifiers: Chest pain type: unspecified Qualified Code(s): R07.9 - Chest pain, unspecified Condition: Good - Admission Yes - Follow up/Referral - Patient Discharge Instructions - Post Discharge Activity
[2019-09-11 10:51] LABS: BASO % 0.6 % (0-2.0); EOS % 0.6 % (0-4.5); HEMATOCRIT 26.7 % (32.4-45.2); HEMOGLOBIN 8.4 GM/dL (10.7-15.3); LYMPH % 10.4 % (8-40); MCH 24.8 pg (25.7-33.7); MCHC 31.3 g/dl (32.0-36.0); MEAN CELL VOLUME 79.1 fl (80-96); MEAN PLT VOLUME 8.2 fl (7.5-11.1); MONO % 6.1 % (3.8-10.2); NEUT % 82.3 % (42.8-82.8); PLATELET COUNT 227 K/MM3 (134-434); RBC 3.37 M/mm3 (3.60-5.2); RDW 17.3 % (11.6-15.6); WHITE BLOOD COUNT 4.6 K/mm3 (4.0-10.0)
--- NOTE | 2019-09-11 11:04 | PDOC ---
Documentation entered by Waleska Guerra SCRIBE, acting as scribe for Brenden Mandel MD. Brenden Mandel MD: This documentation has been prepared by the Charile aguilera Adrianna, SCRIBE, under my direction and personally reviewed by me in its entirety. I confirm that the documentation accurately reflects all work, treatment, procedures, and medical decision making performed by me. Attending Attestation - Resident Resident Name: Wilton Wiseman - ED Attending Attestation I have performed the following: I have examined & evaluated the patient, The case was reviewed & discussed with the resident, I agree w/resident's findings & plan, Exceptions are as noted - HPI HPI: The patient is an 88 year old female, with a significant PMH of Afib (on pradaxa ), HTN, GERD, NIDDM, HLD, arthritis, Alzheimers dementia, anxiety, depression, anemia, and pancreatitis, who presents to the ED for evaluation of chest pain that began this morning. Daughter at bedside provides history. She notes that the patient was distraught this morning, complaining of chest pain, and could not be calmed. She refused to take her daily morning medications, but agreed to do so while in the ED. Patient endorses chest discomfort while in the ED, but will not further describe it. Patients Lasix dosage was increased recently, and the daughter notes the patients LE edema has been improving. Allergies: Penicillins Surgical History: Cardiac stents, left leg orthopedic surgery Social History: PCP: Armando Sevilla Underwriting Sales Representative: Dr. Gil Neurologist: Dr. Agustin - Physicial Exam PE: See resident exam - Medical Decision Making 09/11/19 11:06 88 F with h/o CAD/stents, presenting to ED with chest pain. Will r/o ACS. EKG without new ischemic changes. - Labs, trop - CXR
[2019-09-11 11:24] LABS: ALBUMIN 3.5 g/dl (3.4-5.0); ALK PHOS 89 U/L (45-117); ANION GAP 8 MMOL/L (8-16); BILIRUBIN,TOTAL 0.5 mg/dL (0.2-1); BLOOD UREA NITROGEN 55.5 mg/dL (7-18); CALCIUM 8.8 mg/dL (8.5-10.1); CHLORIDE 104 mmol/L (98-107); CO2 26 mmol/L (21-32); CREATININE 1.2 mg/dL (0.55-1.3); GLUCOSE,RANDOM 243 mg/dL (74-106); N-TERMINAL BNP 2725.6 pg/ml (5-450); POTASSIUM 4.1 mmol/L (3.5-5.1); SGOT/AST 21 U/L (15-37); SGPT/ALT 20 U/L (13-61); SODIUM 137 mmol/L (136-145); TOT PROT 6.9 g/dl (6.4-8.2)
[2019-09-11 11:52] LABS: INR 1.13 (0.83-1.09); PROTHROMBIN TIME (PATIENT) 13.3 SEC (9.7-13.0)
[2019-09-11 11:55] LABS: ACTIVATED PTT 40.4 SECONDS (25.2-36.5)
[2019-09-11 13:05] LABS: PH,URINE 5.5 (5.0-8.0); URINE APPEARANCE CLEAR; URINE BILIRUBIN NEGATIVE (NEGATIVE); URINE COLOR YELLOW; URINE GLUCOSE (UA) NEGATIVE (NEGATIVE); URINE KETONE NEGATIVE (NEGATIVE); URINE LEUK ESTERASE NEGATIVE (NEGATIVE); URINE NITRITE NEGATIVE (NEGATIVE); URINE PROTEIN NEGATIVE (NEGATIVE); URINE UROBILINOGEN 0.2 mg/dL (0.2-1.0)
--- NOTE | 2019-09-11 13:47 | EKG ---
Test Reason : Blood Pressure : / mmHG Vent. Rate : 090 BPM Atrial Rate : 111 BPM P-R Int : 000 ms QRS Dur : 132 ms QT Int : 420 ms P-R-T Axes : 000 038 010 degrees QTc Int : 513 ms ATRIAL FIBRILLATION RIGHT BUNDLE BRANCH BLOCK ABNORMAL ECG WHEN COMPARED WITH ECG OF 18-MAY-2019 14:35, NONSPECIFIC T WAVE CHANGES ARE PRESENT Confirmed by BISHOP SHEARER MD ([id number]) on 09/11/2019 1:46:34 PM Referred By: Confirmed By:BISHOP SHEARER MD
[2019-09-11] MEDS ORDERED: ACETAMINOPHEN 325 MG TABLET (FP) PO ONE (14:52)
[2019-09-11] MEDS ORDERED: LIDOCAINE 5% TOPICAL PATCH TP ONE (14:53)
[2019-09-11] MEDS ORDERED: ACETAMINOPHEN 325 MG TABLET (FP) ONE (15:34)
[2019-09-11] MEDS ORDERED: LIDOCAINE 5% TOPICAL PATCH ONE (15:35)
--- NOTE | 2019-09-11 16:28 | HP ---
CHIEF COMPLAINT: Chest pain PCP: Dr. Rocha (supposed to be covered by Dr. Kerr) HISTORY OF PRESENT ILLNESS: Pt. is an 88 y.o. [place]-speaking F w/ PMHx. of Afib (on Pradaxa), Alzheimer's dementia, HTN, GERD, DM2, HLD, Arthritis, anxiety , depression, and CAD presents with the complaint of chest pain. Pt. severely hard of hearing. History provided by both daughter who doubles as her SHRIMP POND LABORER, and translators. Ana Paula Greene is Pt.s Power of deputy attorney general, no HCP has been designated. Per other daughter who is main SHRIMP POND LABORER, when she arrived at Pt.s house, Pt. was screaming anxiously that she was in pain and that she had generalized aches in her body, that her stomach was aching and that she was belching. Per daughter Pt. has been having worsening dementia and has been more frequently having outbursts. Pt. was scheduled to see her tank builder helper (Dr. Cunningham) today but Pt. was hysterical and refused to take her AM medications, daughters decided to bring her to the hospital. Pt. sees Dr. Agustin who manages her dementia and had her medications recently changed. Pt. denies taking Clonazepam recently because it makes the Pt. more delirious and hallucinate, instead Pt. was started on Seroquel and Donepezil. Pt. endorses having her Lasix dose increased to 40mg Daily last Saturday for worsening leg swelling. ER course was notable for: (1) UA/UCx, EKG, Trop (2) CXR, FOBT, BNP (3) Recent Travel: No PAST MEDICAL HISTORY: As above PAST SURGICAL HISTORY: Cardiac Stents Social History: Smoking: Denies Alcohol: Denies Drugs: Denies Allergies Penicillins Allergy (Mild, Verified 11/22/18 06:45) Rash HOME MEDICATIONS: Home Medications Medication Instructions Recorded Aspirin [Aspirin EC] 81 mg PO DAILY 09/11/19 Atorvastatin Ca [Lipitor] 20 mg PO HS 09/11/19 Dabigatran Etexilate Mesylate 75 mg PO BID 09/11/19 [Pradaxa -] Donepezil HCl 5 mg PO DAILY 09/11/19 Furosemide [Lasix -] 40 mg PO DAILY 09/11/19 Insulin Glargine,Hum.rec.anlog 20 unit SQ DAILY 09/11/19 [Lantus] Lisinopril [Zestril] 2.5 mg PO DAILY 09/11/19 Mag Hydrox/Al Hydrox/Simeth 30 ml PO DAILY 09/11/19 [Mylanta Oral Suspension -] Metoprolol Tartrate [Lopressor -] 12.5 mg PO DAILY 09/11/19 Multivitamin [Multiple Vitamins] 1 each PO DAILY 09/11/19 Omeprazole 20 mg PO DAILY 09/11/19 Pioglitazone HCl/Metformin HCl 1 each PO BID 09/11/19 [Actoplus Met 15 mg-850 mg Tab] Potassium Chloride 20 meq PO DAILY 09/11/19 Quetiapine Fumarate [Seroquel -] 12.5 mg PO BID 09/11/19 Sennosides [Senna] 8.6 mg PO BID 09/11/19 REVIEW OF SYSTEMS As above PHYSICAL EXAMINATION Vital Signs - 24 hr 09/11/19 09/11/19 10:04 14:39 Temperature 98.3 F 98.1 F Pulse Rate 88 Pulse Rate [ 94 H Apical] Respiratory 18 16 Rate Blood Pressure 145/57 L Blood Pressure 91/51 L [Right Arm] O2 Sat by Pulse 100 98 Oximetry (%) GENERAL: Awake, alert, and oriented x 2, in mod. psychiatric distress. HEAD: Normal with no signs of trauma. EYES: Pupils equal, round and reactive to light, extraocular movements intact, sclera anicteric, conjunctiva clear. EARS, NOSE, THROAT: Ears normal, nares patent, oropharynx clear without exudates. Moist mucous membranes. NECK: Normal range of motion, obese LUNGS: Breath sounds equal, clear to auscultation bilaterally. No wheezes, and no crackles. No accessory muscle use. HEART: Regular rate and rhythm, normal S1 and S2 without murmur ABDOMEN: Soft, obese, nontender, not distended, normoactive bowel sounds, no guarding MUSCULOSKELETAL: No CVA tenderness. UPPER EXTREMITIES: warm, well-perfused. No cyanosis. LOWER EXTREMITIES: 2+ dorsal pedal pulses, warm, well-perfused. Calf tenderness. 3+ edema. NEUROLOGICAL: Confused. Hearing loss, Normal speech. Slow Gait, uses walker PSYCHIATRIC: Cooperative. Good eye contact. Appropriate mood and affect. SKIN: Warm, dry, chronic skin changes in lower extremities Laboratory Results - last 24 hr 09/11/19 09/11/19 09/11/19 10:28 10:28 10:28 WBC 4.6 RBC 3.37 L Hgb 8.4 L Hct 26.7 L MCV 79.1 L MCH 24.8 L MCHC 31.3 L RDW 17.3 H Plt Count 227 MPV 8.2 Absolute Neuts (auto) 3.8 Neutrophils % 82.3 Lymphocytes % 10.4 Monocytes % 6.1 Eosinophils % 0.6 D Basophils % 0.6 Nucleated RBC % 0 PT with INR 13.30 H INR 1.13 H PTT (Actin FS) 40.4 H Sodium 137 Potassium 4.1 Chloride 104 Carbon Dioxide 26 Anion Gap 8 BUN 55.5 H Creatinine 1.2 Est GFR (CKD-EPI)AfAm 47.06 Est GFR (CKD-EPI)NonAf 40.60 Random Glucose 243 H Calcium 8.8 Total Bilirubin 0.5 AST 21 ALT 20 Alkaline Phosphatase 89 Troponin I < 0.02 B-Natriuretic Peptide 2725.6 H Total Protein 6.9 Albumin 3.5 Urine Color Urine Appearance Urine pH Ur Specific [place] Urine Protein Urine Glucose (UA) Urine Ketones Urine Blood Urine Nitrite Urine Bilirubin Urine Urobilinogen Ur Leukocyte Esterase Stool Occult Blood 09/11/19 09/11/19 11:00 12:15 WBC RBC Hgb Hct MCV MCH MCHC RDW Plt Count MPV Absolute Neuts (auto) Neutrophils % Lymphocytes % Monocytes % Eosinophils % Basophils % Nucleated RBC % PT with INR INR PTT (Actin FS) Sodium Potassium Chloride Carbon Dioxide Anion Gap BUN Creatinine Est GFR (CKD-EPI)AfAm Est GFR (CKD-EPI)NonAf Random Glucose Calcium Total Bilirubin AST ALT Alkaline Phosphatase Troponin I B-Natriuretic Peptide Total Protein Albumin Urine Color Yellow Urine Appearance Clear Urine pH 5.5 Ur Specific [place] 1.011 Urine Protein Negative Urine Glucose (UA) Negative Urine Ketones Negative Urine Blood Negative Urine Nitrite Negative Urine Bilirubin Negative Urine Urobilinogen 0.2 Ur Leukocyte Esterase Negative Stool Occult Blood Negative ASSESSMENT/PLAN: Pt. is an 88 y.o. [place]-speaking F w/ PMHx. of Afib (on Pradaxa), Alzheimer's dementia, HTN, GERD, DM2, HLD, Arthritis, anxiety, depression, and CAD presents with the complaint of chest pain. #R/o ACS Initial trop negative, f/u Rpt. EKG: HR 90, RBBB, QTc: 513, no ST segment changes, TWI in lead III (New compared to April 2019) Pt. denies any current Chest pain Hold all QTc prolonging drugs f/u Echo, as Pt. does not have one documented now I suspect that this is not a true ACS picture and that Pt. had anxiety attack exacerbated by not taking Klonopin and from underlying baseline worsening dementia. #Alzheimers #HTN #GERD #DM2 #HLD #Arthritis #Afib c/w Home medications, except oral hypoglycemics and Seroquel (prolonged QTc). Please assess Pt. if she becomes agitated overnight, and avoid using Ativan or Benadryl. will provide PRN Haldol for agitation, as Pt. gets more confused when daughters are not present Consult to Dr. Cox appreciated, as Dr. Agustin is currently away Daughter states that she is willing to discuss options of placement into a SNF, and that she needs further time to decide with her family about her code status. Pt. is Full Code. #FEN no IVF, encourage PO intake monitor electrolytes and replete as needed Sodium controlled diet #DVT Ppx. c/w Pradaxa Visit type - Emergency Visit Emergency Visit: Yes ED Registration Date: 09/11/19 Care time: The patient presented to the Emergency Department on the above date and was hospitalized for further evaluation of their emergent condition. - New Patient This patient is new to me today: Yes Date on this admission: 09/11/19 - Critical Care Critical Care patient: No ATTENDING PHYSICIAN STATEMENT I saw and evaluated the patient. I reviewed the resident's note and discussed the case with the resident. I agree with the resident's findings and plan as documented. SUBJECTIVE: OBJECTIVE: ASSESSMENT AND PLAN:
--- NOTE | 2019-09-11 17:58 | PN ---
Teaching Attending Note ATTENDING PHYSICIAN STATEMENT I saw and evaluated the patient. I reviewed the resident's note and discussed the case with the resident. I agree with the resident's findings and plan as documented. SUBJECTIVE: OBJECTIVE: ASSESSMENT AND PLAN:
--- NOTE | 2019-09-11 18:52 | DS ---
Physical Exam: SUBJECTIVE: Patient seen and examined OBJECTIVE: Vital Signs Period Temp Pulse Resp BP Sys/Gilbert Pulse Ox Last 24 Hr 98.1 F-98.4 F 88-95 16-18 91-145/51-69 98-100 PHYSICAL EXAM GENERAL: The patient is awake, alert, and fully oriented, in no acute distress. HEAD: Normal with no signs of trauma. EYES: PERRL, extraocular movements intact, sclera anicteric, conjunctiva clear. ENT: Ears normal, nares patent, oropharynx clear without exudates, moist mucous membranes. NECK: Trachea midline, full range of motion, supple. LUNGS: Breath sounds equal, clear to auscultation bilaterally, no wheezes, no crackles, no accessory muscle use. HEART: Regular rate and rhythm, S1, S2 without murmur, rub or gallop. ABDOMEN: Soft, nontender, nondistended, normoactive bowel sounds, no guarding, no rebound, no hepatosplenomegaly, no masses. EXTREMITIES: 2+ pulses, warm, well-perfused, no edema. NEUROLOGICAL: Cranial nerves II through XII grossly intact. Normal speech, gait not observed. PSYCH: Normal mood, normal affect. SKIN: Warm, dry, normal turgor, no rashes or lesions noted. LABS Laboratory Results - last 24 hr 09/11/19 09/11/19 09/11/19 10:28 10:28 10:28 WBC 4.6 RBC 3.37 L Hgb 8.4 L Hct 26.7 L MCV 79.1 L MCH 24.8 L MCHC 31.3 L RDW 17.3 H Plt Count 227 MPV 8.2 Absolute Neuts (auto) 3.8 Neutrophils % 82.3 Lymphocytes % 10.4 Monocytes % 6.1 Eosinophils % 0.6 D Basophils % 0.6 Nucleated RBC % 0 PT with INR 13.30 H INR 1.13 H PTT (Actin FS) 40.4 H Sodium 137 Potassium 4.1 Chloride 104 Carbon Dioxide 26 Anion Gap 8 BUN 55.5 H Creatinine 1.2 Est GFR (CKD-EPI)AfAm 47.06 Est GFR (CKD-EPI)NonAf 40.60 Random Glucose 243 H Calcium 8.8 Total Bilirubin 0.5 AST 21 ALT 20 Alkaline Phosphatase 89 Creatine Kinase Troponin I < 0.02 B-Natriuretic Peptide 2725.6 H Total Protein 6.9 Albumin 3.5 Urine Color Urine Appearance Urine pH Ur Specific [place] Urine Protein Urine Glucose (UA) Urine Ketones Urine Blood Urine Nitrite Urine Bilirubin Urine Urobilinogen Ur Leukocyte Esterase Stool Occult Blood 09/11/19 09/11/19 09/11/19 11:00 12:15 17:15 WBC RBC Hgb Hct MCV MCH MCHC RDW Plt Count MPV Absolute Neuts (auto) Neutrophils % Lymphocytes % Monocytes % Eosinophils % Basophils % Nucleated RBC % PT with INR INR PTT (Actin FS) Sodium Potassium Chloride Carbon Dioxide Anion Gap BUN Creatinine Est GFR (CKD-EPI)AfAm Est GFR (CKD-EPI)NonAf Random Glucose Calcium Total Bilirubin AST ALT Alkaline Phosphatase Creatine Kinase 80 Troponin I < 0.02 B-Natriuretic Peptide Total Protein Albumin Urine Color Yellow Urine Appearance Clear Urine pH 5.5 Ur Specific [place] 1.011 Urine Protein Negative Urine Glucose (UA) Negative Urine Ketones Negative Urine Blood Negative Urine Nitrite Negative Urine Bilirubin Negative Urine Urobilinogen 0.2 Ur Leukocyte Esterase Negative Stool Occult Blood Negative HOSPITAL COURSE: Date of Admission:09/11/19 Date of Discharge: 09/11/19 Please refer to H&P, was called and informed by nursing staff that Pt. signed out AMA. Minutes to complete discharge: 5 Discharge Summary Problems reviewed: Yes Reason For Visit: ACUTE CORONARY SYNDROME Current Active Problems ACS (acute coronary syndrome) (Acute) Chest pain (Acute) Condition: Good - Instructions Referrals: ON STAFF,NOT [Primary Care Provider] - - Home Medications Comprehensive Discharge Medication List: Ambulatory Orders Aspirin [Aspirin EC] 81 mg PO DAILY 09/11/19 Atorvastatin Ca [Lipitor] 20 mg PO HS 09/11/19 Dabigatran Etexilate Mesylate [Pradaxa -] 75 mg PO BID 09/11/19 Furosemide [Lasix -] 40 mg PO DAILY 09/11/19 Insulin Glargine,Hum.rec.anlog [Lantus] 20 unit SQ DAILY 09/11/19 Lisinopril [Zestril] 2.5 mg PO DAILY 09/11/19 Mag Hydrox/Al Hydrox/Simeth [Mylanta Oral Suspension -] 30 ml PO DAILY 09/11/19 Metoprolol Tartrate [Lopressor -] 12.5 mg PO DAILY 09/11/19 Multivitamin [Multiple Vitamins] 1 each PO DAILY 01/24/20 Pioglitazone HCl/Metformin HCl [Actoplus Met 15 mg-850 mg Tab] 1 each PO BID Quetiapine Fumarate [Seroquel -] 12.5 mg PO BID 09/11/19 RX: Donepezil HCl 5 mg PO DAILY 09/11/19 RX: Omeprazole 20 mg PO DAILY 09/11/19 RX: Potassium Chloride 20 meq PO DAILY 09/11/19 Sennosides [Senna] 8.6 mg PO BID 09/11/19 This patient is new to me today: Yes Date on this admission: 09/11/19 Emergency Visit: Yes ED Registration Date: 09/11/19 Care time: The patient presented to the Emergency Department on the above date and was hospitalized for further evaluation of their emergent condition. Critical Care patient: No - Discharge Referral Referred to [facility] Med P.C.: No ATTENDING PHYSICIAN STATEMENT I saw and evaluated the patient. I reviewed the resident's note and discussed the case with the resident. I agree with the resident's findings and plan as documented. SUBJECTIVE: OBJECTIVE: ASSESSMENT AND PLAN:
[2019-09-11 18:54] VITALS: BP 140/73; PULSE 91; TEMP 97.5
[2019-09-11] MEDS ORDERED: SENNOSIDES 8.6MG TABLET (FP) PO SCH (22:00)
[2019-09-11] MEDS ORDERED: LIDOCAINE PATCH REMOVAL MC SCH (22:00)
[2019-09-11] MEDS ORDERED: ATORVASTATIN CA 20 MG TABLET (FP) PO SCH (22:00)
[2019-09-11] MEDS ORDERED: INSULIN SLIDING SCALE (NOVOLOG) 1 VIAL SQ SCH (22:00)
[2019-09-11] MEDS ORDERED: DABIGATRAN ETEXILATE MESYLATE 75 MG CAPSULE PO SCH (22:00)
[2019-09-12] MEDS ORDERED: PANTOPRAZOLE 20 MG TABLET PO SCH (10:00)
[2019-09-12] MEDS ORDERED: ASPIRIN COATED 81 MG TABLET.EC PO SCH (10:00)
[2019-09-12] MEDS ORDERED: FUROSEMIDE 40 MG TABLET (FP) PO SCH (10:00)
[2019-09-12] MEDS ORDERED: MAG HYDROX/AL HYDROX/SIMETH 30 ML UNIT-DOSE CUP PO SCH (10:00)
[2019-09-12] MEDS ORDERED: DONEPEZIL HCL 5 MG TABLET (FP) PO SCH (10:00)
[2019-09-12] MEDS ORDERED: POTASSIUM CHLORIDE TABS 20 MEQ TABLET.ER (FP) PO SCH (10:00)
[2019-09-12] MEDS ORDERED: METOPROLOL TARTRATE 25 MG TABLET (FP) PO SCH (10:00)
[2019-09-12] MEDS ORDERED: LISINOPRIL 5 MG TABLET (FP) PO SCH (10:00)
--- NOTE | 2019-09-12 10:52 | EKG ---
Test Reason : Blood Pressure : / mmHG Vent. Rate : 083 BPM Atrial Rate : 092 BPM P-R Int : 000 ms QRS Dur : 134 ms QT Int : 420 ms P-R-T Axes : 000 045 010 degrees QTc Int : 493 ms ATRIAL FIBRILLATION RIGHT BUNDLE BRANCH BLOCK ABNORMAL ECG WHEN COMPARED WITH ECG OF 11-SEP-2019 10:43, NONSPECIFIC T WAVE ABNORMALITY HAS REPLACED INVERTED T WAVES IN ANTERIOR LEADS Confirmed by BISHOP SHEARER MD ([id number]) on 09/12/2019 10:52:11 AM Referred By: Confirmed By:BISHOP SHEARER MD
== END 2019-09-11 19:06 | disposition left against medical advice (07) | DRG 57 ==
LOC: SUPCPDRO 09:53 → JER 09:53 → JERBED 13:28 → OBSVTOIN 16:18 → J4W 17:41
PROVIDERS: ADMIT Internal Medicine; ATTEND Internal Medicine
DX: G30.9 Alzheimer's disease, unspecified (principal); R07.89 Other chest pain; I48.91 Unspecified atrial fibrillation; F02.80 Dementia in other diseases classified elsewhere, unspecified severity, without behavioral disturbance, psychotic disturbance, mood disturbance, and anxiety; I10 Essential (primary) hypertension; E78.5 Hyperlipidemia, unspecified; E11.9 Type 2 diabetes mellitus without complications; K21.9 Gastro-esophageal reflux disease without esophagitis; F41.8 Other specified anxiety disorders; I25.10 Atherosclerotic heart disease of native coronary artery without angina pectoris; H91.90 Unspecified hearing loss, unspecified ear; I45.10 Unspecified right bundle-branch block
CPT/HCPCS: 36415; 71045-TC-FY; 80053; 81003; 82272; 82550; 83036; 83880; 84484; 85025; 85610; 85730; 87086; 93005; 93010; 99284-25; G0378